=== PATIENT | female | born 1955 | race Caucasian/White ===

== ENCOUNTER 2016-03-10 08:06 | Inpatient (IN) | payer OTHER ==
[2016-03-09 12:16] VITALS: BMI 25.7
[~2016-03-10] VITALS: Ht 160 cm; Wt 65.8 kg
[2016-03-10] VITALS (18 sets, daily range): BP systolic 132–170; BP diastolic 62–80; PULSE 56–74; RESP 9–20; Ht 160 cm; Wt 65.8 kg
[~2016-03-10 08:06] MED LIST: ATEN-51 PO; CLINDAMYCIN 600 MG/D5W (PMX) 50 ML IVPB ONE; CLON2TAB3 PO; LEVO50TA71 PO; SOD CHLORIDE 0.9% 1,000 ML IV SCH; VENL75CA89 PO
[2016-03-10] MEDS ORDERED: PROPOFOL 20 ML ONE (08:54)
[2016-03-10] MEDS ORDERED: LIDOCAINE 2% (SDV) 5 ML INJ ONE ×2 (08:54→08:55)
[2016-03-10] MEDS ORDERED: SUCCINYLCHOLINE CHLORIDE 100 MG/5 ML SYG IV ONE (08:54)
[2016-03-10] MEDS ORDERED: FENTAnyl 50 MCG/ML VIAL ONE ×2 (08:54→11:00)
[2016-03-10] MEDS ORDERED: MIDAZOLAM 1 MG/ML 2 ML INJ ONE (08:54)
[2016-03-10] MEDS ORDERED: SCOPOLAMINE 1.5 MG PATCH ONE (08:54)
[2016-03-10] MEDS ORDERED: ROCURONIUM 50 MG INJ ONE (08:54)
[2016-03-10] MEDS ORDERED: CEFAZOLIN 1 GM INJ ONE (08:54)
--- NOTE | 2016-03-10 09:13 | RADRPT ---
PROCEDURE: XR Chest. CLINICAL INDICATION: Preoperative. TECHNIQUE: Single frontal chest x-ray. COMPARISON: None. FINDINGS: The lungs are clear of acute infiltrates, edema, effusions, or masses. There is a small calcified gr anuloma in the right lower lung.. The cardiomediastinal silhouette is unremarkable. The osseous str uctures are intact. IMPRESSION: No acute cardiopulmonary disease. RPTAT: JJ .Wilmar Sky MD, MD Date Time Electronically viewed and signed by .Wilmar Sky MD, MD on 03/10/2016 09:13 .L/
[2016-03-10] MEDS ORDERED: ISOSULFAN BLUE 1% 5 ML INJ SC ONE (09:28)
[2016-03-10] MEDS ORDERED: BUPIVACAINE 0.25% (MPF) 30 ML INJ ONE (09:28)
[2016-03-10] MEDS ORDERED: CLINDAMYCIN 600 MG/50 ML D5W IVPB IVPB ONE (10:05)
[2016-03-10] MEDS ORDERED: ONDANSETRON 4 MG INJ ONE (10:13)
[2016-03-10] MEDS ORDERED: DEXAMETHASONE 4 MG/ML 1 ML INJ ONE (10:13)
[2016-03-10] MEDS ORDERED: ACETAMINOPHEN 1000MG/100ML IV 100 ML ONE (10:29)
[2016-03-10] MEDS ORDERED: EPHEDrine SULFATE 50 MG/5 ML SYG ONE (10:54)
[2016-03-10] MEDS ORDERED: ATROPINE 1 MG/10 ML SYRINGE ONE (10:54)
[2016-03-10] MEDS ORDERED: PROCHLORPERAZINE 10 MG INJ IV PRN (11:00)
[2016-03-10] MEDS ORDERED: LABETALOL HCL 20MG INJ IV PRN (11:00)
[2016-03-10] MEDS ORDERED: hydrALAzine 20 MG INJ IV PRN ×2 (11:00→16:00)
[2016-03-10] MEDS ORDERED: FENTAnyl 50 MCG/ML VIAL IV PRN (11:00)
[2016-03-10] MEDS ORDERED: DIPHENHYDRAMINE 50 MG INJ IV PRN (11:00)
[2016-03-10] MEDS ORDERED: ONDANSETRON 4 MG INJ IV PRN ×2 (11:00→16:00)
[2016-03-10] MEDS ORDERED: MEPERIDINE 25 MG INJ IV PRN (11:00)
[2016-03-10] MEDS ORDERED: HYDROmorphONE (0.2 MG/ML) 10ML SYG IV PRN ×2 (11:00)
[2016-03-10] MEDS ORDERED: METOCLOPRAMIDE 10 MG INJ IV PRN (11:00)
[2016-03-10] MEDS ORDERED: HYDROmorphONE 2 MG/ML SYG ONE (11:12)
[2016-03-10] MEDS: SOD CHLORIDE 0.9% 1,000 ML IV SCH ×2 (12:48→15:49)
[2016-03-10] MEDS ORDERED: HYDROmorphONE 1 MG/ML SYG IV PRN (13:00)
[2016-03-10] MEDS ORDERED: GLYCOPYRROLATE 0.4 MG INJ ONE ×3 (14:10→14:11)
[2016-03-10] MEDS ORDERED: NEOSTIGMINE 3 MG/3 ML SYRINGE ONE ×2 (14:10→14:11)
[2016-03-10] MEDS ORDERED: NALOXONE (0.4 MG/ML) INJ ONE (14:13)
--- NOTE | 2016-03-10 14:59 | OPR ---
DATE OF OPERATION: 03/10/2016 INDICATION: This is a 60-year-old female with right breast cancer. She has considerable anxiety an d also requests a prophylactic left mastectomy. There is a suspicious lesion in the left breast on imaging and left axillary node sampling also will be performed. The patient expressed understanding and consents to the operation. POSTOPERATIVE DIAGNOSIS: Right breast cancer and left breast lesion. POSTOPERATIVE DIAGNOSIS: Right breast cancer and left breast lesion. OPERATION PERFORMED: 1. Right modified radical mastectomy. 2. Left simple mastectomy. 3. Left axillary node dissection by method of sentinel lymph node dissection. SURGEON: David Terry MD SPECIMENS: Right breast, left breast, right sentinel lymph node, left sentinel lymph node, right ax illary node. COMPLICATIONS: None. ANESTHESIA: General. DESCRIPTION OF PROCEDURE: The patient was taken to the OR and prepped and draped in the usual steri le fashion. Surgical time out was performed. IV antibiotics were given. Lymphazurin injection was performed in the retroareolar on both right and left breasts. The breast was palpated for approxim ately 10 minutes. Right axillary node dissection is performed. Incision was made in the right axil la with a 15 blade. Dissection cautery was carried down through the clavipectoral fascia, and senti igor lymph nodes are found. This was sent to pathology. These were found to be negative; however, t here were some other clinically palpable nodes that were of some concern, and these were also sent o ut as specimen with care and consideration with protecting the long thoracic and thoracodorsal nerve s. There was good hemostasis, packing was placed. Right mastectomy was performed by making an marilyn ptical incision encompassing the nipple areolar complex. The breast specimen is resected by first p erforming superior and inferior skin flaps. The breast was then resected from the pectoralis muscle with inclusive of the pectoralis fascia. The hemostasis packings were placed. Attention was then paid to the left axilla. A small incision is made and left axilla with a 15 blade. Dissection caut latonia was carried down to the clavipectoral fascia and blue sentinel lymph node was identified. This was sent for specimen. There is no evidence of any cancer. This area is packed. The left simple m astectomy was performed by making an elliptical incision encompassing the nipple areolar complex. S uperior and inferior skin flaps were created. The left breast was then resected with cautery at the pectoral fascia. Both surgical specimens were marked with short superior, long lateral, and skin a nterior and sent for specimen. The packing was then placed for all sites. The left axillary sentin el lymph node dissection was also found to be negative. All surgical sites are irrigated with irrig ation and hemostatic. They are closed with multiple interrupted 3-0 Vicryl and running 4-0 Monocryl . Local anesthesia was injected. Dry dressings were applied. Dictated By: DAVID COLBERT/JACOB Conf#: [id number] DID#: [id number]
[2016-03-10 16:10] LABS: HEMATOCRIT 33.8 % (37.0-47.0); HEMOGLOBIN 11.8 g/dl (12.0-16.0); MEAN CORPUSCULAR HGB CONC 34.9 g/dl (32.0-37.0); MEAN CORPUSCULAR VOLUME 88.9 fl (82.0-101.0); MEAN PLATELET VOLUME 11.6 fl (7.4-10.4); PLATELET COUNT 128 10^3/UL (140-440); UNCORRECTED WBC 11.9 10^3/ul (4.8-10.8); WHITE BLOOD COUNT 11.9 10^3/ul (4.8-10.8)
[2016-03-10 16:11] LABS: ALBUMIN 2.6 g/dl (3.3-4.9); POTASSIUM 3.7 mmol/L (3.5-5.1)
[2016-03-10 16:13] LABS: BILIRUBIN,INDIRECT 0.1 mg/dl (0-1.1); BILIRUBIN,TOTAL 0.1 mg/dl (0.2-1.3); CREATININE 0.54 mg/dl (0.44-1.00)
[2016-03-10 16:14] LABS: ALBUMIN/GLOBULIN RATIO 1.08; CALCIUM 7.5 mg/dl (8.4-10.2)
[2016-03-10 16:15] LABS: CONDITION 1; LH ANALYZER COMMENTS 1
--- NOTE | 2016-03-10 17:08 | HP ---
DATE OF ADMISSION: 03/10/2016 HISTORY OF PRESENT ILLNESS: The patient is a 60-year-old female with past medical history positive for hypertension, depression and hypothyroidism. The patient was diagnosed with right breast cancer . Patient also noted suspicious lesions in her left breast on imaging. The patient was brought to [facility] and underwent a right modified radical mastectomy and a left simple mastectomy with the left axillary node dissection. The patient has experienced some postoperative pain and nausea and a dmitted for further evaluation and management. Patient denies any fever or chills. Denies any ches t pain. PAST MEDICAL HISTORY: Positive for hypertension, anxiety, depression, hypothyroidism. PAST SURGICAL HISTORY: Status post laparoscopic right-sided oophorectomy for right ovarian mass, st atus post cholecystectomy and status post hysterectomy. FAMILY HISTORY: Noncontributory. SOCIAL HISTORY: Patient lives at home with her family. The patient denies any alcohol use, denies any illicit drug use. Patient smokes 1 cigarette per day for many years, stated that she quit coupl e of weeks ago. ALLERGIES: PATIENT IS ALLERGIC TO PENICILLIN ANTIBIOTIC, CODEINE AND MORPHINE. HOME MEDICATIONS 1. Atenolol. 2. Clonazepam. 3. Levothyroxine. 4. Venlafaxine. REVIEW OF SYSTEMS: A 12-point review of systems is negative unless what is mentioned in the HPI. PHYSICAL GENERAL: Well-developed, well-nourished female currently is awake, alert. VITAL SIGNS: Temperature 97.5, pulse is 74, blood pressure is 170/80, respiratory rate 18, oxygen s aturation is 99% on 3 liters nasal cannula, respiratory rate 18, pulse is 74. HEENT: Head is atraumatic, normocephalic. Pupils equal, round, reactive to light and accommodation . Oral mucosa is pink and moist. NECK: Supple, no cervical lymphadenopathy, no thyromegaly. CHEST: Status post surgery with dressing. RESPIRATORY: Lungs clear bilaterally. There is no rhonchi, wheezes, rales noted. CARDIOVASCULAR: Normal S1, S2. No murmurs, gallops, clicks, rubs noted. ABDOMEN: Round, soft, nondistended and nontender. Bowel sounds present. EXTREMITIES: No edema, clubbing, cyanosis. Pulses equal bilaterally 2+. SKIN: There is no rash, petechiae noted. NEUROLOGIC: Patient is awake, alert and oriented x3, no focal deficits noted. Motor strength 5/5 i n all extremities. LABORATORY DATA: Prior to admission, BMP: Glucose 77. BUN is 9, creatinine 0.74 138, potassium 3. 5, chloride 101, carbon dioxide 30, calcium 9.1, PTT is 27. CBC: White blood count 7.3, hemoglobin 14.7, hematocrit 43.9, platelets 166. INR is 1. PT is 9.9. IMAGING: Chest x-ray prior with no acute cardiopulmonary disease. ASSESSMENT AND PLAN: 1. Right breast cancer and left breast lesion, status post right modified radical mastectomy and a left simple mastectomy with left axillary maxwell dissection by Dr. Terry. 2. Hypertension. 3. Anxiety. 4. Hypothyroidism. Resume the patient's home medication of Synthroid and Atenolol. 5. We will administer hydralazine p.r.n. for systolic blood pressure above 170. Continue Dilaudid for pain and Zofran p.r.n. for nausea. Continue IV fluids. The patient also receiving intraoperati ve antibiotics and advance diet as patient tolerates to 2 g sodium, low fat, low cholesterol diet, i ncentive spirometer 1 hour. Patient is awake. Sequential compression devices for deep venous throm bosis prophylaxis. Further recommendations based on clinical course. Plan of care discussed with Brooklyn Collins. Dictated By: LUCAS ANN STRIP CUTTER for ALEKSANDAR COLLINS MD, SR/NTS Conf#: [id number] DID#: [id number]
[2016-03-10] MEDS: CLINDAMYCIN 600 MG/D5W (PMX) 50 ML IVPB SCH (17:36)
[2016-03-10] MEDS: ACETAMINOPHEN 325 MG TAB PO PRN (18:44)
[2016-03-10 19:19] LABS: LYMPHOCYTES # 0.8 10^3/ul (0.8-2.9); MONOCYTE # 0.1 10^3/ul (0.3-0.9); NEUTROPHIL # 10.8 10^3/ul (1.6-7.5)
[2016-03-10] MEDS: ATENOLOL 25 MG TAB PO SCH ×3 (21:00→23:35)
[2016-03-11] MEDS: SOD CHLORIDE 0.9% 1,000 ML IV SCH (04:00)
[2016-03-11 04:05] VITALS: BP 122/70; PULSE 63; RESP 18
[2016-03-11] MEDS: ACETAMINOPHEN 325 MG TAB PO PRN (04:10)
[2016-03-11] MEDS: CLINDAMYCIN 600 MG/D5W (PMX) 50 ML IVPB SCH ×3 (06:19→12:52)
[2016-03-11 06:30] LABS: ALBUMIN 3.2 g/dl (3.3-4.9)
[2016-03-11 06:31] LABS: POTASSIUM 3.4 mmol/L (3.5-5.1)
[2016-03-11 06:32] LABS: BASOPHILS % 0.2 % (0.0-2.0); HEMATOCRIT 34.6 % (37.0-47.0); HEMOGLOBIN 12.3 g/dl (12.0-16.0); LYMPHOCYTES # 1.8 10^3/ul (0.8-2.9); LYMPHOCYTES % 14.5 % (15.0-51.0); MEAN CORPUSCULAR HEMOGLOBIN 31.3 pg (29.0-33.0); MEAN CORPUSCULAR HGB CONC 35.5 g/dl (32.0-37.0); MEAN CORPUSCULAR VOLUME 88.2 fl (82.0-101.0); MEAN PLATELET VOLUME 11.7 fl (7.4-10.4); MONOCYTE # 0.5 10^3/ul (0.3-0.9); MONOCYTES % 3.7 % (0.0-11.0); NEUTROPHIL # 10.4 10^3/ul (1.6-7.5); NEUTROPHILS % 81.6 % (39.0-77.0); PLATELET COUNT 145 10^3/UL (140-440); RED BLOOD COUNT 3.92 10^6/ul (4.20-5.40); RED CELL DISTRIBUTION WIDTH 13.1 % (11.5-14.5); UNCORRECTED WBC 12.7 10^3/ul (4.8-10.8); WHITE BLOOD COUNT 12.7 10^3/ul (4.8-10.8)
[2016-03-11 06:33] LABS: ALBUMIN/GLOBULIN RATIO 1.1; BILIRUBIN,INDIRECT 0.8 mg/dl (0-1.1); BILIRUBIN,TOTAL 0.8 mg/dl (0.2-1.3); CREATININE 0.59 mg/dl (0.44-1.00); TOTAL PROTEIN 6.1 g/dl (6.1-8.1)
[2016-03-11 06:34] LABS: CALCIUM 7.6 mg/dl (8.4-10.2)
[2016-03-11 06:36] LABS: CONDITION 1
[2016-03-11] MEDS ORDERED: LEVOTHYROXINE 50 MCG TAB PO SCH (07:00)
[2016-03-11 07:55] VITALS: BP 128/64; RESP 16
[2016-03-11] MEDS: ATENOLOL 25 MG TAB PO SCH (08:59)
[2016-03-11] MEDS ORDERED: POTASSIUM CHLORIDE (SR) 20 MEQ TAB PO STA (09:54)
--- NOTE | 2016-03-11 09:54 | PN ---
Date/Time of Note Date/Time of Note DATE: 03/11/16 TIME: 09:40 Assessment/Plan VTE Prophylaxis VTE Prophylaxis Intervention: SCD's Lines/Catheters IV Catheter Type (from Nrsg): Peripheral IV Assessment/Plan Assessment/Plan 1. Right breast cancer and left breast lesion, status post right modified radical mastectomy and a left simple mastectomy with left axillary maxwell dissection by Dr. Terry. - Incentive spirometer - pain management - Continue Dilaudid for pain and Zofran p.r.n. for nausea. - Continue IV fluids. 2. Hypertension - Atenolol. - hydralazine p.r.n. for systolic blood pressure above 170. - 2 g sodium, low fat, low cholesterol diet, 3. Anxiety. 4. Hypothyroidism- Synthroid 5. Hypokalemia - replet K, bmp am Sequential compression devices for deep venous thrombosis prophylaxis. Further recommendations based on clinical course. Plan of care discussed with Dr. Collins. Subjective 24 Hr Interval Summary Constitutional: other Eyes: no complaints ENT: no complaints Respiratory: no complaints Cardiovascular: no complaints Gastrointestinal: no complaints Genitourinary: no complaints Musculoskeletal: no complaints Skin: no complaints (surgery- maryuri breast. c/o tight dressing- Staff to notify Dr Rowell ), other Neurologic: no complaints Endocrine: no complaints Lymphatic: no complaints Psychological: no complaints Immunologic: no complaints Exam/Review of Systems Vital Signs Vitals Vital Signs Date Time Temp Pulse Resp B/P Pulse Ox O2 Delivery O2 Flow Rate FiO2 03/11/16 07:55 98.4 66 16 128/64 96 03/11/16 04:05 Room Air 03/10/16 21:45 2.0 Intake and Output 03/10/16 03/10/16 03/11/16 15:00 23:00 07:00 Intake Total 1100 ml 450 ml 920 ml Output Total 50 ml 2 ml Balance 1050 ml 450 ml 918 ml Exam Constitutional: alert, oriented Psych: nl mood/affect Head: atraumatic Eyes: EOMI, PERRL, nl sclera ENMT: nl external ears & nose Neck: non-tender Respiratory: clear to auscultation Cardiovascular: nl pulses Gastrointestinal: non-tender, soft Musculoskeletal: nl extremities to inspection Extremities: normal pulses Neurological: nl mental status Skin: other (Bilateral mastectomy) Lymph: nontender Results Result Diagram: 03/11/1612 03/11/16511 Results 24 hrs Laboratory Tests Test 03/10/16 15:35 03/11/16 05:12 Alanine Aminotransferase (ALT/SGPT) 56 139 H Albumin 2.6 L 3.2 L Albumin/Globulin Ratio 1.08 1.10 Alkaline Phosphatase 58 79 Anion Gap 18 H 15 Aspartate Amino Transf (AST/SGOT) 48 H 129 H Band Neutrophils % 1.0 Blood Morphology Comment Blood Urea Nitrogen 9 6 L Calcium Level 7.5 L 7.6 L Carbon Dioxide Level 22 25 Chloride Level 105 100 Creatinine 0.54 0.59 Direct Bilirubin 0.00 0.00 Globulin 2.40 2.90 Glucose Level 111 105 Hematocrit 33.8 L 34.6 L Hemoglobin 11.8 L 12.3 Indirect Bilirubin 0.1 0.8 Lymphocytes # 0.8 1.8 Lymphocytes % 7.0 L 14.5 L Mean Corpuscular Hemoglobin 31.0 31.3 Mean Corpuscular Hemoglobin Concent 34.9 35.5 Mean Corpuscular Volume 88.9 88.2 Mean Platelet Volume 11.6 H 11.7 H Monocytes # 0.1 L 0.5 Monocytes % 1.0 3.7 Neutrophils # 10.8 H 10.4 H Neutrophils % 91.0 H 81.6 H Platelet Count 128 L 145 Potassium Level 3.7 3.4 L Red Blood Count 3.80 L 3.92 L Red Cell Distribution Width 13.0 13.1 Sodium Level 141 137 Total Bilirubin 0.1 L 0.8 Total Protein 5.0 L 6.1 # White Blood Count 11.9 H 12.7 H Basophils # 0.0 Basophils % 0.2 Eosinophils # 0.0 Eosinophils % 0.0 Nucleated Red Blood Cells # 0.0 Nucleated Red Blood Cells % 0.0 Medications Medications Current Medications Sodium Chloride 1,000 ml @ 100 mls/hr Q10H IV Last administered on 03/11/16 04:00; Admin Dose 50 MLS/HR; Start 03/10/16 at 12:48 Clindamycin HCl/ Dextrose (Cleocin 600 Mg/ D5W (Pmx)) 50 ml @ 50 mls/hr Q6 IVPB Last administered on 03/11/16 06:19; Admin Dose 50 MLS/HR; Start 03/10/16 at 18:00; Stop 03/11/16 at 18:00 Hydromorphone HCl (Dilaudid) 0.5 mg Q4H PRN IV PAIN; Start 03/10/16 at 13:00 Atenolol (Tenormin) 25 mg BID PO Last administered on 03/11/16 08:59; Admin Dose 25 MG; Start 03/10/16 at 21:00 Hydralazine HCl (Apresoline) 10 mg Q6H PRN IV SBP>170; Start 03/10/16 at 16:00 Ondansetron HCl (Zofran Inj) 4 mg Q4H PRN IV NAUSEA AND/OR VOMITING Last administered on 03/10/16 21:02; Admin Dose 4 MG; Start 03/10/16 at 16:00 Acetaminophen (Tylenol Tab) 650 mg Q4H PRN PO PAIN AND OR ELEVATED TEMP Last administered on 03/11/16 04:10; Admin Dose 650 MG; Start 03/10/16 at 18:00 LEORA ZAMORANO Mar 11, 2016 09:53
--- NOTE | 2016-03-11 16:32 | PDOCDIS ---
Discharge Instructions CONDITION Patient Condition: Stable HOME CARE INSTRUCTIONS: Special Diet: REGULAR LEORA ZAMORANO Mar 11, 2016 16:32
--- NOTE | 2016-03-12 14:02 | RADRPT ---
Vent Rate: 52 bpm RR Interval: 0 msec ND Interval: 162 msec QRS Duration: 88 msec QT Interval: 474 msec QTC Interval: 440 msec P-R-T [place]: 36 - 12 - 48 degrees Sinus bradycardia Otherwise normal ECG Electronically Signed By: Michael Hylton [id number]
--- NOTE | 2016-03-13 07:08 | PN ---
DATE: 03/11/2016 postoperative day #1. SUBJECTIVE: Complains that the wrap around her breast and chest wall is too tight. OBJECTIVE VITAL SIGNS: As follows: Temperature 98.4, heart 66, respirations 16, blood pressure 128/64, satur ation 96% on room air. Status post bilateral mastectomy with axillary sampling and resection for cancer. WBC is 12,700, hemoglobin is 12.3, hematocrit is 34.6. She can move both arms and hands and raise them. Because she was complaining of too much tightness of the wrap-around dressing, so we removed it and re-wrapped it slightly looser. I could not find any drain, so the patient does not have any drain s ubcutaneously, but the wound is clean, and there is no swelling. ASSESSMENT: Stable, postoperative day #1 for bilateral mastectomy for cancer and axillary dissectio n. PLAN: Discharge the patient home. Follow up by Dr. Terry in the office next week. Dictated By: ELOISE DIEHL/JACOB Conf#: [id number] DID#: [id number]
== END 2016-03-11 19:00 | disposition home or self-care (01) | DRG 581 ==
LOC: INTOOBSV 08:06 → REC 08:06 → EDSTATUS 12:00 → MS2 14:55 → OBSVTOIN 03-11 13:25
PROVIDERS: ADMIT Internal Medicine; ATTEND Surgery
PROC: 0HTT0ZZ Resection of Right Breast, Open Approach (ICD-10-PCS; principal; 2016-03-11)
PROC: 07B60ZX Excision of Left Axillary Lymphatic, Open Approach, Diagnostic (ICD-10-PCS; 2016-03-11)
PROC: 0HBU0ZZ Excision of Left Breast, Open Approach (ICD-10-PCS; 2016-03-11)
PROC: 07B50ZX Excision of Right Axillary Lymphatic, Open Approach, Diagnostic (ICD-10-PCS; 2016-03-11)
DX: C50.911 Malignant neoplasm of unspecified site of right female breast (principal); I10 Essential (primary) hypertension; N64.9 Disorder of breast, unspecified; F32.9 Major depressive disorder, single episode, unspecified; E03.9 Hypothyroidism, unspecified; Z90.13 Acquired absence of bilateral breasts and nipples; F17.210 Nicotine dependence, cigarettes, uncomplicated; Z90.721 Acquired absence of ovaries, unilateral; Z90.710 Acquired absence of both cervix and uterus; F41.9 Anxiety disorder, unspecified; E87.6 Hypokalemia
CPT/HCPCS: 71010; 80053; 85025; 88307; 93005; 99217; G0378; J0131; J0330; J0461; J0690; J1100; J1170; J2250; J2310; J2405; J2710; J3010; J7030; Q9968

== ENCOUNTER 2016-11-15 09:37 | Day surgery (SDC) | payer OTHER ==
[~2016-11-15] VITALS: Ht 154.9 cm; Wt 67.9 kg
[2016-11-15] VITALS (13 sets, daily range): BP systolic 106–163; BP diastolic 63–83; PULSE 48–67; RESP 8–18; Ht 154.9 cm; Wt 67.9 kg
[~2016-11-15 09:37] MED LIST changes: -CLINDAMYCIN 600 MG/D5W (PMX) 50 ML IVPB ONE; -SOD CHLORIDE 0.9% 1,000 ML IV SCH
[2016-11-15] MEDS ORDERED: ATEN-51 PO (10:04)
[2016-11-15] MEDS ORDERED: LEVO25TA50 PO (10:05)
[2016-11-15] MEDS ORDERED: CLON0.5T4 PO (10:06)
[2016-11-15] MEDS ORDERED: ONDA4TAB8 PO (10:07)
[2016-11-15] MEDS ORDERED: VENL75CA89 PO (10:07)
[2016-11-15] MEDS ORDERED: ANAS1TAB PO (10:08)
[2016-11-15] MEDS ORDERED: HYDR25TA6 PO (10:09)
[2016-11-15] MEDS ORDERED: SIMV10TA PO (10:10)
[2016-11-15] MEDS ORDERED: CALC1TAB79 PO (10:10)
[2016-11-15] MEDS ORDERED: OMEP20CA16 PO (10:11)
[2016-11-15] MEDS ORDERED: RANI150T5 PO (10:12)
--- NOTE | 2016-11-15 10:46 | HPN ---
Date/Time of Note Date/Time of Note DATE: 11/15/16 TIME: 10:46 Interval H&P Admission Note Pt. seen H&P reviewed: No system changes SHREYA HINES MD Nov 15, 2016 10:46
[2016-11-15] MEDS ORDERED: GENTAMICIN 80 MG INJ ONE (11:05)
[2016-11-15] MEDS ORDERED: EPINEPHrine 1 MG INJ ONE (11:05)
[2016-11-15] MEDS ORDERED: POLYMYXIN/BACITRACIN 1L IRRIG ONE (11:05)
[2016-11-15] MEDS ORDERED: CEFAZOLIN 1 GM INJ ONE (11:07)
[2016-11-15] MEDS ORDERED: ROCURONIUM 50 MG INJ ONE ×2 (11:07→12:06)
[2016-11-15] MEDS ORDERED: METOCLOPRAMIDE 10 MG INJ ONE (11:07)
[2016-11-15] MEDS ORDERED: PROPOFOL 20 ML ONE (11:07)
[2016-11-15] MEDS ORDERED: MIDAZOLAM 1 MG/ML 2 ML INJ ONE (11:07)
[2016-11-15] MEDS ORDERED: SODIUM CL BACTERIOSTATIC 30 ML INJ ONE (11:09)
--- NOTE | 2016-11-15 11:19 | OPR ---
Date/Time of Note Date/Time of Note DATE: 11/15/16 TIME: 11:02 Operative Report Free Text/Dictation Plastic Surgery Operative Report Preoperative diagnosis: history of breast cancer Postoperative diagnosis: same Procedure: bilateral breast reconstruction with tissue expanders Surgeon: paula Avelar.: n/a Anesthesia: gen EBL: min IV fluids: per flow sheet Findings:n/a Complications: none Dispo: home Indications for procedure: 61 yo F patient presents for bilateral tissue brim plater breast reconstruction. The risks, benefits, and alternatives of performing this procedure were discussed with the patient including the risks of bleeding, infection, wound healing problems, brim plater extrusion, pain and tightness, need for removal. We discussed that if radiation is involved, it may alter the outcome. The risk of asymmetry and need for revision surgery were also discussed. The patient states that she understands these risks and would like to proceed with the procedure. All questions were answered, no guarantees were given with regards the outcome of this procedure. Description of procedure: The patient was brought to the operating room at [facility] where general anesthesia was induced, and the patient was prepped and draped in the usual sterile fashion. First, a total of 5 cc of local anesthetic solution containing 0.25% marcaine with 1:200,000 epi were injected into the planned incision site in the prior mastectomy scar in each breast. Next, the 10 blade was used to incise through the right breast scar, and then electrocautery was used to dissect down to the pectoralis muscle. The mastectomy flaps were re-elevated off of the underlying pectoralis muscle until adequate elevation and visualization have been achieved. Next, electrocautery was used to make a longitudinal incision in the pectoralis muscle , and the subpectoral space was entered with electrocautery. A pocket was then created in the subpectoral plane. Dissection proceeded medially, superiorly, and laterally, and then inferiorly. Once the inferior most point of the dissection had been achieved, dissection turned superiorly, and the inferior portion of the pectoralis muscle was released and the subcutaneous plane was entered. Once the pocket had completely been created, the base width was then measured and was found to be approximately 12.5cm. Next, the 10 blade was used to incise through the left breast scar, and then electrocautery was used to dissect down to the pectoralis muscle. The mastectomy flaps were re-elevated off of the underlying pectoralis muscle until adequate elevation and visualization have been achieved. Next, electrocautery was used to make a longitudinal incision in the pectoralis muscle, and the subpectoral space was entered with electrocautery. A pocket was then created in the subpectoral plane. Dissection proceeded medially, superiorly, and laterally, and then inferiorly. Once the inferior most point of the dissection had been achieved, dissection turned superiorly, and the inferior portion of the pectoralis muscle was released and the subcutaneous plane was entered. Once the pocket had completely been created, the base width was then measured and was found to be approximately 12.5cm. Therefore, an [employer] [id number] tissue brim plater was opened, rinsed in antibiotic irrigation, the air was evacuated, and then gloves were changed and this was inserted into the right breast and was sutured in place with 2-0 Vicryl suture. The same size and style brim plater was inserted into the left breast in a similar fashion. Next, a total of 60 cc of sterile saline was injected into each brim plater. The pectoralis muscles were then closed with 2-0 Vicryl suture. An additional round of hemostasis and irrigation was carried out. 60 cc of a dilute exparel solution was injected around each breast, and 1 x 15 Audi drains were inserted through a stab incision in each axilla and were secured in place with 2-0 nylon suture. The breast was then closed with 3-0 Vicryl suture and 4-0 Monocryl suture and was dressed with Dermabond, Tegaderm, and an ABD. Additional 120cc of saline were injected into the expanders for a total of 180cc on each side. the patient tolerated this procedure well, there were no complications, follow-up information and wound care instructions were given Preoperative Diagnosis history of breast cancer Postoperative Diagnosis same Surgeon see signature line Outpatient Services Director none Anesthesia Type: general Estimated Blood Loss: minimal Transfusion none Specimen none Grafts/Implants bilateral breast tissue expanders Complications none Procedure Description see above SHREYA HINES MD Nov 15, 2016 11:19
[2016-11-15] MEDS ORDERED: ONDANSETRON 4 MG INJ IV PRN ×2 (11:30→12:00)
[2016-11-15] MEDS ORDERED: morphine 2 MG INJ IV PRN (11:30)
[2016-11-15] MEDS ORDERED: BUPIVACAINE LIPOSOME/PF 266 MG/20 ML VIAL INFIL SCH (11:30)
[2016-11-15] MEDS ORDERED: HYDROCODONE/APAP (5/325) TAB PO PRN (11:30)
[2016-11-15] MEDS ORDERED: METOPROLOL 5 MG INJ ONE (11:33)
[2016-11-15] MEDS ORDERED: BUPIVACAINE 0.5%/EPI (SDV) 30 ML INJ ONE (11:35)
[2016-11-15] MEDS ORDERED: DIPHENHYDRAMINE 50 MG INJ IV PRN (12:00)
[2016-11-15] MEDS ORDERED: METOCLOPRAMIDE 10 MG INJ IV PRN (12:00)
[2016-11-15] MEDS ORDERED: HYDROmorphONE (0.2 MG/ML) 10ML SYG IV PRN ×3 (12:00)
[2016-11-15] MEDS ORDERED: MEPERIDINE 25 MG INJ IV PRN (12:00)
[2016-11-15] MEDS ORDERED: HYDROmorphONE 2 MG/ML SYG ONE (12:30)
[2016-11-15] MEDS ORDERED: ONDANSETRON 4 MG INJ ONE (12:32)
[2016-11-15] MEDS ORDERED: GLYCOPYRROLATE 0.4 MG INJ ONE (13:22)
[2016-11-15] MEDS ORDERED: NEOSTIGMINE 3 MG/3 ML SYRINGE ONE (13:22)
[2016-11-15] MEDS ORDERED: HYDROmorphONE (0.2 MG/ML) 10ML SYG IV ONE (14:07)
== END 2016-11-15 16:50 | disposition home or self-care (01) ==
LOC: SDS 09:37
PROVIDERS: ATTEND Surgery Plastic and Reconstructive Surgery
DX: Z90.13 Acquired absence of bilateral breasts and nipples (principal); Z85.3 Personal history of malignant neoplasm of breast; E03.9 Hypothyroidism, unspecified
CPT/HCPCS: 19342; 88304; C1789; C9290; J0690; J1170; J1580; J2250; J2405; J2710; J2765; Z7512; Z7610; J0171

== ENCOUNTER 2018-05-21 05:54 | Day surgery (SDC) | payer OTHER ==
[~2018-05-21] VITALS: Ht 157.5 cm; Wt 65.4 kg
[2018-05-21] VITALS (8 sets, daily range): BP systolic 137–164; BP diastolic 67–79; PULSE 52–54; RESP 10–18; Ht 157.5 cm; Wt 65.4 kg
[~2018-05-21 05:54] MED LIST changes: +ANAS1TAB PO; -ATEN-51 PO; +CALC1TAB79 PO; +CLON0.5T14 PO; -CLON2TAB3 PO; +HYDR25TA6 PO; +LEVO25TA50 PO; -LEVO50TA71 PO; +OMEP20CA16 PO; +ONDA4TAB8 PO; +RANI150T5 PO; +SIMV10TA PO
--- NOTE | 2018-05-21 06:29 | PREOPHP ---
DATE OF ADMISSION: 05/21/2018 HISTORY OF PRESENT ILLNESS: This 62-year-old patient is admitted for elective cataract surgery of th e right eye. The patient has had decreased vision in that eye for a period of the past year's time. The patient previously had cataract surgery performed in the left eye with moderate improvement of v isual acuity due to the presence of macular pucker in the left eye. ALLERGIES: THE PATIENT IS ALLERGIC TO: 1. PENICILLIN. 2. CODEINE. 3. MORPHINE. PHYSICAL EXAMINATION: The visual acuity best corrected is 20/60 in the right eye and 20/40 in the le ft eye. Slit lamp examination reveals moderate nuclear sclerotic cataract in the right eye and poste rior chamber intraocular lens in the left eye. Applanation tonometry is 14 mmHg in both eyes. There is a posterior vitreous detachment in the right eye and evidence of a macular pucker in the left eye . DIAGNOSIS: Nuclear sclerotic cataract, right eye. PLAN: Cataract extraction with lens implant, right eye. The risks and alternatives to the surgery h ave been discussed with the patient as well as the hope for improvement in visual acuity leading to g reater ability to perform activities of daily living. The patient understands this and agrees to pro ceed with surgery. Dictated By: NIKI WHITTINGTON/JACOB Conf#: [id number] DID#: [id number]
[2018-05-21] MEDS ORDERED: CARBACHOL 0.01% 1.5 ML OPH INJ ONE (06:50)
[2018-05-21] MEDS ORDERED: CEFAZOLIN 1 GM INJ ONE (06:50)
[2018-05-21] MEDS ORDERED: TETRACAINE 0.5% 4 ML OPH ONE (06:50)
[2018-05-21] MEDS ORDERED: LIDOCAINE 4% (MPF) 5 ML INJ ONE (06:50)
[2018-05-21] MEDS ORDERED: DEXAMETHASONE 4 MG/ML 1 ML INJ ONE (06:51)
[2018-05-21] MEDS ORDERED: EPINEPHrine 1 MG INJ ONE (06:51)
[2018-05-21] MEDS ORDERED: GENTAMICIN 80 MG INJ ONE (06:59)
--- NOTE | 2018-05-21 06:59 | PREAC ---
Date/Time of Note Date/Time of Note DATE: 05/21/18 TIME: 06:57 Anesthesia Eval and Record Evaluation Time Pre-Procedure Interview DATE: 05/21/18 TIME: 06:57 Age 62 Sex female NPO: 8 hrs Preoperative diagnosis right eye cataract Planned procedure RIGHT EYE CEIOL implant Past Medical History Past Medical History: Includes Cardio: HTN, Dyslipidemia Endo: Hypothyroid Pulm: Other (+ PPD negative chest xray) Musculoskeletal: Osteoarthritis Heme: Other (breast cancer s/p bilat mastectomy Left ALND) Psych: Depression Surgery & Anesthesia Issues No known issue Meds Anticoagulation: No Beta Ugo within 24 hr: No Reason Beta Ugo not given: Pt. not on B-Ugo Reported Medications Ranitidine Hcl* (Ranitidine Hcl*) 150 Mg Tablet, 150 MG PO Q12, #60 TAB 11/15/16 Omeprazole* (Omeprazole*) 20 Mg Capsule.dr, 20 MG PO DAILY, #30 CAP 11/15/16 Simvastatin* (Zocor*) 10 Mg Tablet, 10 MG PO QHS, #30 TAB 11/15/16 Calcium Carbonate/Vitamin D3 (Oysco 500+D Tablet) 1 Each Tablet, 1 EACH PO DAILY, TAB 11/15/16 Hydrochlorothiazide* (Hydrochlorothiazide*) 25 Mg Tab, 25 MG PO DAILY, #30 TAB 11/15/16 Anastrozole* (Arimidex*) 1 Mg Tablet, 1 MG PO DAILY, #30 TAB 11/15/16 Venlafaxine Hcl* (Venlafaxine Hcl ER*) 75 Mg Cap.er.24h, 75 MG PO DAILY, CAP 11/15/16 Ondansetron Hcl* (Zofran*) 4 Mg Tablet, 8 MG PO DAILY PRN for NAUSEA AND OR VOMITING, TAB 11/15/16 Clonazepam* (Clonazepam*) 0.5 Mg Tablet, 0.25 MG PO QHS, TAB 11/15/16 Levothyroxine Sodium* (Levoxyl*) 25 Mcg Tablet, 25 MCG PO BEFORE BREAKFAST, #30 TAB 11/15/16 Current Medications Diclofenac Sodium (Voltaren 0.1%) 1 drop Q5 MIN X 3 OPER ; Start 05/21/18 at 07:00; Stop 05/21/18 at 18:00 Tropicamide (Mydriacyl 1%) 1 drop Q5 MIN X3 OPER ; Start 05/21/18 at 07:00; Stop 05/21/18 at 18:00 Moxifloxacin HCl (Vigamox) 1 drop Q5 MIN X 3 OPER ; Start 05/21/18 at 07:00; Stop 05/21/18 at 18:00 Cyclopentolate/ Phenylephrine (Cyclomydril Oph 2 ml) 1 drop Q5 MIN X 3 OPER ; Start 05/21/18 at 07:00; Stop 05/21/18 at 18:00 Sodium Chloride 1,000 ml @ 25 mls/hr Q24H IV ; Start 05/21/18 at 07:00; Stop 05/21/18 at 18:00 Meds reviewed: Yes Allergies Coded Allergies: Penicillins (Verified Allergy, Severe, 11/15/16) morphine (Verified Allergy, Unknown, RASH, 11/15/16) PER DR HORNER codeine (Verified Adverse Reaction, Severe, 11/15/16) Allergies Reviewed: Yes Labs/Studies Labs Reviewed: Reviewed by anesthesiologist test: N/A Studies: ECG, CXR Pre-procedure Exam Airway: Adequate mouth opening, Adequate thyromental dist Mallampati: Mallampati II Teeth: Normal Lung: Normal Heart: Normal ASA Physical Status ASA physical status: 3 Emergency: None Planned Anesthetic General/MAC: MAC Planned Pain Management Parenteral pain med, Local by surgeon Pre-operative Attestations Prior to commencing anesthesia and surgery, the patient was re-evaluated, there was verification of: *The patient's identity *The results of appropriate recent lab work and preoperative vital signs *The above evaluation not changing prior to induction *Anesthetic plan, risk benefits, alternative and complications discussed with patient/family; questions answered; patient/family understands, accepts and wishes to proceed. EZEKIEL SEVILLA May 21, 2018 06:59
[2018-05-21] MEDS ORDERED: MOXIFLOXACIN 0.5% 3 ML OPH OPER SCH (07:00)
[2018-05-21] MEDS ORDERED: ONDANSETRON 4 MG INJ IV PRN (07:00)
[2018-05-21] MEDS ORDERED: CYCLOPENTOLATE/PHENYLEPH 2 ML OPH OPER SCH (07:00)
[2018-05-21] MEDS ORDERED: FENTAnyl 50 MCG/ML VIAL IV PRN ×3 (07:00)
[2018-05-21] MEDS ORDERED: TROPICAMIDE 1% 15 ML OPH OPER SCH (07:00)
[2018-05-21] MEDS ORDERED: DICLOFENAC 0.1% 2.5 ML OPH OPER SCH (07:00)
[2018-05-21] MEDS ORDERED: SOD CHLORIDE 0.9% 1,000 ML IV SCH (07:00)
[2018-05-21] MEDS ORDERED: FENTAnyl 50 MCG/ML VIAL ONE (07:04)
[2018-05-21] MEDS ORDERED: PROPOFOL 20 ML ONE (07:04)
[2018-05-21] MEDS ORDERED: CIPR500T4 PO (07:37)
[2018-05-21] MEDS ORDERED: NITR100C6 ORAL (07:37)
[2018-05-21] MEDS ORDERED: LISI-471 PO (07:37)
[2018-05-21] MEDS ORDERED: FAMO20TA18 PO (07:37)
[2018-05-21] MEDS ORDERED: ATOR20TA38 PO (07:37)
[2018-05-21] MEDS ORDERED: AMIT10TA6 PO (07:38)
[2018-05-21] MEDS ORDERED: PHEN-717 PO (07:38)
[2018-05-21] MEDS ORDERED: NA HYALURONATE/CHONDROITIN 0.5 ML SYG RIGHT EYE ONE (07:56)
--- NOTE | 2018-05-21 08:15 | SIPON ---
Date/Time of Note Date/Time of Note DATE: 05/21/18 TIME: 08:14 Operative Report Preoperative Diagnosis nuclear sclerotic cataract od Postoperative Diagnosis same Operation/Procedure Performed cataract extraction with lens implant od Surgeon niki fontana biology laboratory assistant none Anesthesia: MAC Estimated blood loss: none Transfusion Required none Specimen none Grafts/Implants posterior chamber lens implant Complications none NIKI FONTANA MD May 21, 2018 08:15
[2018-05-21] MEDS ORDERED: NA HYALURONATE/CHONDROITIN 0.5 ML SYG ONE (08:17)
--- NOTE | 2018-05-21 08:27 | PAC ---
Date/Time of Note Date/Time of Note DATE: 05/21/18 TIME: 08:26 Post-Anesthesia Notes Post-Anesthesia Note Last documented vital signs 145/75 HR 52 Spo2 97% Temp 98.3 RR 14 Vital Signs Date Temp Pulse Resp B/P (MAP) Pulse Ox O2 O2 Flow FiO2 Time Delivery Rate 05/21/18 98.3 54 18 137/74 96 07:35 (95) Activity: WNL Respiratory function: WNL Cardiovascular function: WNL Mental status: Baseline Pain reasonably controlled: Yes Hydration appropriate: Yes Nausea/Vomiting absent: Yes EZEKIEL SEVILLA May 21, 2018 08:27
--- NOTE | 2018-05-21 08:49 | OPR ---
DATE OF OPERATION: 05/21/2018 PREOPERATIVE DIAGNOSIS: Nuclear sclerotic cataract, right eye. POSTOPERATIVE DIAGNOSIS: Nuclear sclerotic cataract, right eye. OPERATION PERFORMED: Cataract extraction with lens implant, right eye. SURGEON: Niki Fontana M.D. ANESTHESIOLOGIST: Wilmar Leal CRNA ANESTHESIA: Local standby. PROCEDURE: The patient was brought to the operating room and placed on the table with an IV in place and the patient attached to an potline monitor. Oxygen was given via face mask. After some intravenous sedation was administered, local anesthesia was given using Xylocaine 2% with epinephrine, mixed with Marcaine 0.5%. This was given in a lid block and retrobulbar injection. The patient was then prepped and draped in the usual sterile manner. A wire lid speculum was inserted between the lids of the right eye. A Superblade was used to enter t he anterior chamber at the corneoscleral limbus at the 10:30 o'clock position. A separate incision w as made using a 3.0-mm keratome which entered the corneoscleral junction at the 12 o'clock position. Through this 3-mm opening, an irrigating cystotome was introduced into the anterior chamber. The ch chago was filled with Viscoat and an anterior capsulotomy was performed. Balanced salt solution was then used for hydrodissection of the lens. A phacoemulsification handpiece was then brought into the field and introduced into the anterior chamber. The lens nucleus was emulsified using a deep groove and cracking the nucleus into quadrants. Following this, each quadrant was aspirated and emulsified at the pupillary margin. After this was completed, the irrigation/aspiration handpiece was brought to the field, introduced in to the posterior chamber, and the lens cortical material was removed. When this was completed, addit ional Viscoat was injected into the anterior and posterior chambers. The 3-mm opening had its internal lips enlarged, and then the posterior chamber intraocular lens jen uring 22.5 diopters ([employer] model LI61AO) was then injected into the posterior c hamber using the lens injector system. After the leading haptic was introduced into the capsular bag and the lens optic was present in the center of the eye, the injector was removed and the trailing h aptic was grasped with non-toothed forceps and introduced into the capsular fold superiorly. A [place] ey hook was then used to rotate the intraocular lens so that the lips were oriented in the horizontal meridian. One 10-0 nylon suture was placed across the wound. Prior to tying, the irrigation/aspiration handpiece was reintroduced into the anterior chamber to rem ove the Viscoat. Miochol was instilled to constrict the pupil, and then the 10-0 nylon suture was ti ed. The ends were cut short and then the knot was buried. Then, 0.5 mL of dexamethasone and 0.5 mL of Ancef were injected into the sub-Tenon space in the infer ior fornix. Ciloxan drops were then placed on the surface of the eye. The speculum was removed and a patch was applied. The patient then left the operating room in satisfactory condition. Dictated By: NIKI WHITTINGTON/JACOB Conf#: [id number] DID#: [id number] CC: NIKI FONTANA MD;*EndCC*
== END 2018-05-21 09:10 | disposition home or self-care (01) ==
LOC: SDS 05:54
PROVIDERS: ATTEND Ophthalmology
DX: H25.11 Age-related nuclear cataract, right eye (principal); E03.9 Hypothyroidism, unspecified; I10 Essential (primary) hypertension
CPT/HCPCS: 66984; J0171; J1100; J1580; J3010; V2632; Z7512; Z7610; J0690